=== PATIENT | male | born 1995 | race African-American/Black ===

== ENCOUNTER 2016-05-15 | Emergency (ER) | payer MEDICAID | END 2016-05-15 12:50 | disposition home or self-care (01) ==

== ENCOUNTER 2016-05-31 07:09 | Emergency (ER) | payer MEDICAID ==
[2016-05-31] MEDS ORDERED: ALBUTEROL NEB 2.5 MG/3 ML INH STA (07:24)
[2016-05-31] MEDS ORDERED: ALBUTEROL NEB 2.5 MG/3 ML INH ONE (07:27)
[2016-05-31] MEDS ORDERED: DEXAMETHASONE 10 MG/ML VIAL PO STA (07:32)
[2016-05-31] MEDS ORDERED: CHERRY SYRUP 10 ML UDC PO ONE (07:37)
[2016-05-31] MEDS ORDERED: DEXAMETHASONE 10 MG/ML VIAL ONE (07:37)
== END 2016-05-31 09:05 | disposition home or self-care (01) ==
DX: J45.901 Unspecified asthma with (acute) exacerbation (principal); Z87.891 Personal history of nicotine dependence
CPT/HCPCS: 94640; 99282; 99284; A9270; J7613

== ENCOUNTER 2016-06-09 08:45 | Emergency (ER) | payer MEDICAID ==
[2016-06-09] MEDS ORDERED: IPRATROPIUM/ALBUTEROL 3 ML NEB INH ONE (09:12)
[2016-06-09] MEDS ORDERED: IPRATROPIUM/ALBUTEROL 3 ML NEB INH STA (09:14)
[2016-06-09] MEDS ORDERED: DEXAMETHASONE 10 MG/ML VIAL PO STA (09:14)
[2016-06-09] MEDS ORDERED: DEXAMETHASONE 10 MG/ML VIAL ONE (09:21)
[2016-06-09] MEDS ORDERED: CHERRY SYRUP 10 ML UDC PO ONE (09:21)
== END 2016-06-09 09:25 | disposition home or self-care (01) ==
DX: J45.41 Moderate persistent asthma with (acute) exacerbation (principal); H66.006 Acute suppurative otitis media without spontaneous rupture of ear drum, recurrent, bilateral; T48.6X6A Underdosing of antiasthmatics, initial encounter; Z91.14 Patient's other noncompliance with medication regimen; Z87.891 Personal history of nicotine dependence
CPT/HCPCS: 94640; 99283; 99284; A9270; J7620

== ENCOUNTER 2016-06-21 21:40 | Emergency (ER) | payer MEDICAID ==
[2016-06-21] MEDS ORDERED: DEXAMETHASONE 10 MG/ML VIAL PO STA (22:20)
[2016-06-21] MEDS ORDERED: IPRATROPIUM/ALBUTEROL 3 ML NEB INH STA (22:20)
[2016-06-21] MEDS ORDERED: DEXAMETHASONE 10 MG/ML VIAL ONE (22:30)
[2016-06-21] MEDS ORDERED: IPRATROPIUM/ALBUTEROL 3 ML NEB INH ONE (22:39)
[2016-06-21] MEDS ORDERED: ALBUTEROL 8 GM INHALER INH STA (22:51)
[2016-06-21] MEDS ORDERED: ALBUTEROL 8 GM INHALER INH ONE (22:52)
== END 2016-06-21 23:07 | disposition home or self-care (01) ==
DX: J45.41 Moderate persistent asthma with (acute) exacerbation (principal); Z76.0 Encounter for issue of repeat prescription; H66.92 Otitis media, unspecified, left ear; Z87.891 Personal history of nicotine dependence
CPT/HCPCS: 94640; 94664; 99283; 99284; A9270; J7620

== ENCOUNTER 2016-07-31 15:19 | Emergency (ER) | payer MEDICAID | END 2016-07-31 16:06 | disposition home or self-care (01) | DX: J45.909 Unspecified asthma, uncomplicated (principal); Z76.0 Encounter for issue of repeat prescription; Z87.891 Personal history of nicotine dependence ==

== ENCOUNTER 2016-08-12 06:00 | Emergency (ER) | payer MEDICAID ==
[2016-08-12] MEDS ORDERED: predniSONE 20 MG TABLET PO STA (06:21)
[2016-08-12] MEDS ORDERED: IPRATROPIUM/ALBUTEROL 3 ML NEB INH STA (06:21)
[2016-08-12] MEDS ORDERED: predniSONE 20 MG TABLET ONE (06:28)
[2016-08-12] MEDS ORDERED: IPRATROPIUM/ALBUTEROL 3 ML NEB INH ONE (06:31)
== END 2016-08-12 07:28 | disposition home or self-care (01) ==
DX: J45.909 Unspecified asthma, uncomplicated (principal); Z87.891 Personal history of nicotine dependence
CPT/HCPCS: 94640; 99283; J7512; J7620

== ENCOUNTER 2016-09-24 14:56 | Emergency (ER) | payer MEDICAID ==
[2016-09-24 15:08] VITALS: BP 117/70
== END 2016-09-24 15:42 | disposition left against medical advice (07) ==
LOC: ED 14:56
DX: Z53.21 Procedure and treatment not carried out due to patient leaving prior to being seen by health care provider (principal)

== ENCOUNTER 2017-03-02 07:26 | Emergency (ER) | payer MEDICAID ==
[2017-03-02] MEDS ORDERED: IPRATROPIUM/ALBUTEROL 3 ML NEB INH STA (08:34)
--- NOTE | 2017-03-02 08:34 | ED Physician Documentation ---
PD HPI DYSPNEA - Stated complaint Stated Complaint: asthma - Chief complaint Chief Complaint: Resp - History obtained from History obtained from: Patient - History of Present Illness Timing - onset: Last night Timing - onset during: Rest Timing - details: Still present Inciting event(s): Out of meds Improved by: Inhaler/neb Similar symptoms before: Diagnosis (history of asthma.) - Additional information Additional information: The patient is a 21-year-old asthmatic male who is well known to us in the emergency department because of recurrent visits for asthma medication. He presents today stating he has been short of breath since last night. He does not have access to his asthma medication because it was in his car when it was impounded one week ago. He denies fever, chest pain, nausea or vomiting. Review of his medical record reveals his last emergency department visit here was 6 months ago. Review of Systems Constitutional: denies: Fever Nose: denies: Congestion Throat: denies: Sore throat Cardiac: denies: Chest pain / pressure Respiratory: reports: Dyspnea. denies: Cough GI: denies: Abdominal Pain, Nausea, Vomiting : denies: Dysuria Skin: denies: Rash Musculoskeletal: denies: Extremity swelling Neurologic: denies: Headache PD PAST MEDICAL HISTORY - Past Medical History Past Medical History: No Cardiovascular: None Respiratory: Asthma Endocrine/Autoimmune: None HEENT: None Psych: None Derm: None - Past Surgical History Past Surgical History: No - Present Medications Home Medications: Ambulatory Orders Medication Instructions Recorded Confirmed Albuterol Sulfate [Proair Hfa 2 puffs INH Q4H PRN #1 inhaler 05/31/16 07/31/16 Inhaler] Albuterol Sulfate [Proair Hfa 2 puffs INH Q4H PRN #1 inhaler 07/31/16 Inhaler] Albuterol Sulf [Ventolin Hfa 1 - 2 puffs INH Q4HR PRN #1 inhaler 08/12/16 Inhaler] predniSONE [Prednisone] 40 mg PO DAILY 3 Days tablet 08/12/16 Albuterol Sulfate [Proventil Hfa 1 - 2 puffs INH Q4H PRN #1 inhaler 03/02/17 Inhaler] - Allergies Allergies/Adverse Reactions: Allergies Allergy/AdvReac Type Severity Reaction Status Date / Time No Known Drug Allergies Allergy Verified 08/12/16 06:16 - Social History Does the pt smoke?: No Smoking Status: Never smoker Does the pt drink ETOH?: Yes Does the pt have substance abuse?: No - Immunizations Immunizations are current?: Yes Immunizations: TDAP current <10years - POLST Patient has POLST: No PD ED PE NORMAL - Vitals Vital signs reviewed: Yes (initially hypertensive.) - General General: Alert and oriented X 3, Well developed/nourished - HEENT HEENT: Atraumatic, EOMI, Pharynx benign - Neck Neck: No adenopathy, No JVD - Cardiac Cardiac: RRR, No murmur - Respiratory Respiratory: Other (Diffuse expiratory wheezes bilaterally.) - Abdomen Abdomen: Soft, Non tender - Back Back: No CVA TTP - Derm Derm: No rash - Extremities Extremities: No edema, No calf tenderness / cord - Neuro Neuro: Alert and oriented X 3, No motor deficit, Normal speech Results - Vitals Vitals: Oxygen O2 Source Room air PD MEDICAL DECISION MAKING - ED course Complexity details: reviewed old records, re-evaluated patient, considered differential, d/w patient ED course: The patient's presentation is significant for acute exacerbation of asthma. His presentation does not suggest pneumonia, pulmonary embolus, or pneumothorax. Treatment in the emergency department included administration of DuoNeb nebulizer. On reevaluation, the patient reports feeling subjectively much improved. Auscultation of his chest reveals clearing of his wheezes. He is being discharged with prescription for albuterol inhaler. I once again discussed with him the importance of establishing care with a primary physician , as well as potentially worrisome signs or symptoms that should prompt reevaluation in the emergency department. Departure - Departure Disposition: 01 Home, Self Care Clinical Impression: Asthma exacerbation Qualifiers: Asthma severity: moderate Asthma persistence: unspecified Qualified Code(s): J45.901 - Unspecified asthma with (acute) exacerbation Condition: Stable Instructions: ED Inhaler Use Follow-Up: [facility] [Provider Group] Prescriptions: Albuterol Sulfate [Proventil Hfa Inhaler] 1 - 2 puffs INH Q4H PRN #1 inhaler PRN Reason: Shortness Of Air/Wheezing Comments: Use the albuterol inhaler as prescribed if needed for wheezing. Follow-up with primary physician. Call to schedule appointment. Return to the emergency department if you develop increasing difficulty breathing, or otherwise worsening symptoms. Discharge Date/Time: 03/02/17 09:23
[2017-03-02] MEDS ORDERED: IPRATROPIUM/ALBUTEROL 3 ML NEB INH ONE (08:53)
[2017-03-02 09:21] VITALS: BP 120/74
== END 2017-03-02 09:23 | disposition home or self-care (01) ==
LOC: ED 07:26
DX: J45.901 Unspecified asthma with (acute) exacerbation (principal)
CPT/HCPCS: 94640; 99283; 99284; J7620